=== PATIENT | male | born 1980 | race Caucasian/White ===

== ENCOUNTER 2017-11-29 22:17 | Emergency (ER) | payer MEDICARE, MEDICAID ==
[2017-11-29 23:19] LABS: BASO % 0.5 % (0.0-1.0); EOS # 0.1 10^3/uL (0.0-0.50); EOS % 0.8 % (0.0-3.0); HEMATOCRIT 42.3 % (42.0-52.0); HEMOGLOBIN 14.3 g/dl (13.5-17.5); IMMATURE GRANULOCYTE % 0.3 % (0-3.0); LYMPH # 2.5 10^3/uL (1.5-4.5); LYMPH % 31.8 % (24.0-44.0); MEAN CORPUSCULAR HEMOGLOBIN 30.9 pg (27.0-33.0); MEAN CORPUSCULAR HGB CONC 33.8 g/dl (32.0-36.5); MEAN CORPUSCULAR VOLUME 91.4 fl (80.0-96.0); MONO # 0.5 10^3/uL (0.0-0.8); MONO % 6.9 % (0.0-5.0); NEUTROPHILS # 4.7 10^3/uL (1.8-7.7); NEUTROPHILS % 59.7 % (36.0-66.0); PLATELET COUNT, AUTOMATED 202 10^3/uL (150-450); RED BLOOD COUNT 4.63 10^6/uL (4.30-6.10); RED CELL DISTRIBUTION WIDTH 12.6 % (11.5-14.5); WHITE BLOOD COUNT 7.8 10^3/uL (4.0-10.0)
[2017-11-29 23:23] LABS: INR 0.95; PROTHROMBIN TIME 12.8 SECONDS (12.1-14.4)
[2017-11-29 23:24] LABS: PARTIAL THROMBOPLASTIN TIME 25.7 SECONDS (25.4-37.6)
[2017-11-29 23:32] LABS: ANION GAP 9 MEQ/L (8-16); BLOOD UREA NITROGEN 13 MG/DL (7-18); CALCIUM LEVEL 8.3 MG/DL (8.5-10.1); CARBON DIOXIDE LEVEL 23 MEQ/L (21-32); CHLORIDE LEVEL 109 MEQ/L (98-107); CREATININE FOR GFR 0.96 MG/DL (0.70-1.30); ETHYL ALCOHOL (ETHANOL) 0.109 % (0.000-0.010); GLOMERULAR FILTRATION RATE > 60.0 (>60); GLUCOSE, FASTING 94 MG/DL (70-100); POTASSIUM SERUM 3.5 MEQ/L (3.5-5.1); SODIUM LEVEL 141 MEQ/L (136-145)
[2017-11-29] MEDS: NS 1,000 ML IV (23:40)
[2017-11-29] MEDS: MORPHINE 4 MG/ML 1ML VIAL/SYRINGE (J2270) IV (23:40)
[2017-11-30] MEDS: HYDROMORPHONE HCL 0.5 MG/ 0.5 ML SYRINGE (J1170 PER 1) IV ×2 (00:46→01:38)
== END 2017-11-30 02:10 | disposition short-term general hospital (02) ==
LOC: M ED 11-30 02:10
DX: S02.40DA Maxillary fracture, left side, initial encounter for closed fracture (principal); S02.2XXA Fracture of nasal bones, initial encounter for closed fracture; S02.609A Fracture of mandible, unspecified, initial encounter for closed fracture; Y04.0XXA Assault by unarmed brawl or fight, initial encounter; Y92.89 Other specified places as the place of occurrence of the external cause; F10.20 Alcohol dependence, uncomplicated; F31.9 Bipolar disorder, unspecified; F17.210 Nicotine dependence, cigarettes, uncomplicated
CPT/HCPCS: J2270

== ENCOUNTER → 2018-04-05 | Outpatient (REF) | payer MEDICARE, MEDICAID ==
[~2018-04-05] MED LIST: LAMO100T PO; NICO4GUM8 PO; OLAN20TA14 PO; OMEP40CA2 PO; OXCA300T14 PO; OXCA600T8 PO; SUBO8MIS PO; SUCR1TAB56 PO
[2018-04-05 16:26] LABS: INFLUENZA A AMPLIFICATION NEGATIVE (NEGATIVE); INFLUENZA B AMPLIFICATION NEGATIVE (NEGATIVE)
== END ==
LOC: M LAB REF 15:22
PROVIDERS: ATTEND Physician Assistant
DX: J11.1 Influenza due to unidentified influenza virus with other respiratory manifestations (principal)

== ENCOUNTER → 2020-12-15 | Outpatient (CLI) | payer MEDICARE, MEDICAID ==
[~2020-12-15] MED LIST changes: -LAMO100T PO; +LAMO100T3 PO; -OMEP40CA2 PO; +OMEP40CA4 PO
== END ==
LOC: M OUTALCOH 07:53
PROVIDERS: ATTEND Psychiatry & Neurology Psychiatry
DX: Z03.89 Encounter for observation for other suspected diseases and conditions ruled out (principal)

== ENCOUNTER 2020-12-23 14:53 | Outpatient (RCR) | payer MEDICARE, MEDICAID | END 2021-01-19 | LOC: M OUTALCOH 14:53 | PROVIDERS: ATTEND Psychiatry & Neurology Psychiatry | DX: Z03.89 Encounter for observation for other suspected diseases and conditions ruled out (principal); Z72.0 Tobacco use ==

== ENCOUNTER → 2020-12-31 | Outpatient (CLI) | payer MEDICARE, MEDICAID ==
--- NOTE | 2020-12-31 16:42 | REP ---
INDICATION: SOB. COMPARISON: AP CXR 08/10/2015, CXR 11/09/2013, CTA 08/27/2013. TECHNIQUE: Two views FINDINGS: There is slight elevation of the right diaphragm compared to the previous study. Some linear atelectatic or fibrotic changes seen in the right base. No pleural effusion, dense consolidation, lateral pleural thickening or parenchymal mass. There is no apical pleural scarring or pneumothorax. Subtle density projects over the posterior left 8th rib and 5th intercostal space. Whether this is parenchymal or bony is uncertain. There are a few cuffed bronchi in the perihilar regions which could reflect some reactive airway disease or bronchitis. Heart is not grossly enlarged. The aorta and airway are intact. Swetha generally symmetric. Thoracic spine shows no compression deformity or focal lesion. Clavicles and visualized shoulders intact. I do not see any definite displaced fractures of the ribs. Bilateral and anterior chest wall jewelry again seen. IMPRESSION: 1. In the interval from 2015 there is elevation of the right diaphragm with some linear fibrotic or atelectatic change in the right base. No definite dense consolidation, pleural effusion, pleural thickening, pneumothorax or parenchymal mass. However, there are a few cuffed bronchi in the perihilar regions reflecting possible reactive airway disease or bronchitis. 2. Subtle density overlies the posterior left 8th rib in the 5th intercostal space and could be parenchymal or bony. No similar findings and previous exams. 3. No other significant or acute findings. <Electronically signed by Gumaro Lowry > 12/31/20 [id number]
== END ==
LOC: M RAD 16:10
PROVIDERS: ATTEND Physician Assistant
DX: R50.9 Fever, unspecified (principal); F17.210 Nicotine dependence, cigarettes, uncomplicated

== ENCOUNTER → 2021-01-07 | Outpatient (CLI) | payer MEDICARE, MEDICAID ==
[2021-01-07 10:56] LABS: BASO # 0.1 10^3/uL (0.0-0.2); BASO % 0.7 % (0.0-1.0); EOS # 0.2 10^3/uL (0.0-0.5); EOS % 2.7 % (0.0-3.0); HEMATOCRIT 43.3 % (42.0-52.0); HEMOGLOBIN 14.3 g/dl (13.5-17.5); LYMPH # 2.5 10^3/uL (1.5-5.0); MEAN CORPUSCULAR HEMOGLOBIN 30.6 pg (27.0-33.0); MEAN CORPUSCULAR VOLUME 92.5 fl (80.0-96.0); MONO # 0.5 10^3/uL (0.0-0.8); MONO % 7.3 % (2.0-8.0); NEUTROPHILS # 3.9 10^3/uL (1.5-8.5); NEUTROPHILS % 53.9 % (36.0-66.0); PLATELET COUNT, AUTOMATED 215 10^3/uL (150-450); RED BLOOD COUNT 4.68 10^6/uL (4.30-6.10); WHITE BLOOD COUNT 7.1 10^3/uL (4.0-10.0)
[2021-01-07 11:41] LABS: ALBUMIN 3.3 GM/DL (3.2-5.2); ALT/SGPT 41 U/L (12-78); BILIRUBIN,TOTAL 0.2 MG/DL (0.2-1.0); BLOOD UREA NITROGEN 7 MG/DL (7-18); CALCIUM LEVEL 8.5 MG/DL (8.5-10.1); CARBON DIOXIDE LEVEL 25 MEQ/L (21-32); CHLORIDE LEVEL 109 MEQ/L (98-107); CHOLESTEROL LEVEL 164 MG/DL (<200); CHOLESTEROL RISK RATIO 4.205 (<5); CREATININE FOR GFR 0.96 MG/DL (0.70-1.30); FERRITIN 102 NG/ML (26-388); GLOMERULAR FILTRATION RATE > 60.0 (>60); GLUCOSE, FASTING 84 MG/DL (70-100); HDL CHOLESTEROL 39 MG/DL (>40); IRON (FE) 71 UG/DL (65-175); LDL CHOLESTEROL 88 MG/DL (<100); MAGNESIUM LEVEL 2.3 MG/DL (1.8-2.4); NON-HDL-C 125 MG/DL; PERCENT SATURATION 37.4 % (19.7-50.0); PHOSPHORUS LEVEL 3.5 MG/DL (2.5-4.9); POTASSIUM SERUM 3.9 MEQ/L (3.5-5.1); PROLACTIN 5.9 NG/ML (2.1-17.7); SODIUM LEVEL 141 MEQ/L (136-145); THYROXINE (T4) 6.3 UG/DL (4.5-12.0); TOTAL 25(OH) VITAMIN D 17.6 NG/ML (30.0-100.0); TOTAL IRON BINDING CAPACITY 190 UG/DL (250-450); TOTAL PROTEIN 6.1 GM/DL (6.4-8.2); TOTAL T3 105.2 NG/DL (60.0-181.0); TRIGLYCERIDES LEVEL 185 MG/DL (<150); VITAMIN B12 LEVEL 367 PG/ML (247-911)
== END ==
LOC: M LAB 10:00
PROVIDERS: ATTEND Acupuncturist
DX: Z51.81 Encounter for therapeutic drug level monitoring (principal); Z79.899 Other long term (current) drug therapy; E55.9 Vitamin D deficiency, unspecified; D50.9 Iron deficiency anemia, unspecified; E53.9 Vitamin B deficiency, unspecified; R79.89 Other specified abnormal findings of blood chemistry

== ENCOUNTER → 2022-09-20 | Outpatient (CLI) | payer MEDICARE, MEDICAID | LOC: M RAD 10:21 | PROVIDERS: ATTEND Physician Assistant | DX: J45.20 Mild intermittent asthma, uncomplicated (principal); R91.8 Other nonspecific abnormal finding of lung field ==

== ENCOUNTER → 2022-10-25 | Outpatient (CLI) | payer MEDICARE, MEDICAID | LOC: M RAD 09:06 | PROVIDERS: ATTEND Physician Assistant | DX: J45.21 Mild intermittent asthma with (acute) exacerbation (principal) ==

== ENCOUNTER → 2022-11-11 | Outpatient (CLI) | payer MEDICARE, MEDICAID ==
[~2022-11-11] MED LIST changes: +ISOVUE-370 76% 100ML VIAL As Ordered ONE
== END ==
LOC: M RAD 10:18
PROVIDERS: ATTEND Physician Assistant
DX: R91.8 Other nonspecific abnormal finding of lung field (principal)
CPT/HCPCS: 71260; Q9967

== ENCOUNTER → 2023-10-12 | Outpatient (CLI) | payer MEDICARE, MEDICAID ==
[~2023-10-12] MED LIST changes: -ISOVUE-370 76% 100ML VIAL As Ordered ONE; -OLAN20TA14 PO; +OLAN20TA53 PO
== END ==
LOC: M RAD 17:29
PROVIDERS: ATTEND Physician Assistant
DX: R07.82 Intercostal pain (principal)

== ENCOUNTER → 2023-11-13 | Outpatient (CLI) | payer MEDICARE, MEDICAID | LOC: M PLAIMG 14:34 | PROVIDERS: ATTEND Physician Assistant Surgical | DX: M25.522 Pain in left elbow (principal); M77.12 Lateral epicondylitis, left elbow ==

== ENCOUNTER → 2023-11-29 | Outpatient (CLI) | payer MEDICARE, MEDICAID | LOC: M LAB 12:51 | PROVIDERS: ATTEND Orthopaedic Surgery | DX: Z01.818 Encounter for other preprocedural examination (principal); R94.31 Abnormal electrocardiogram [ECG] [EKG] ==

== ENCOUNTER → 2024-06-24 | Outpatient (CLI) | payer MEDICARE, MEDICAID ==
[2024-06-24 15:21] LABS: BASO % 0.5 % (0.0-1.0); EOS # 0.2 10^3/uL (0.0-0.5); EOS % 2.7 % (0.0-3.0); HEMATOCRIT 44.9 % (42.0-52.0); HEMOGLOBIN 14.8 g/dl (13.5-17.5); LYMPH # 1.7 10^3/uL (1.5-5.0); LYMPH % 25.9 % (24.0-44.0); MEAN CORPUSCULAR VOLUME 90.9 fl (80.0-96.0); MONO # 0.5 10^3/uL (0.0-0.8); MONO % 7.1 % (2.0-8.0); NEUTROPHILS # 4.1 10^3/uL (1.5-8.5); NEUTROPHILS % 63.5 % (36.0-66.0); PLATELET COUNT, AUTOMATED 197 10^3/uL (150-450); RED BLOOD COUNT 4.94 10^6/uL (4.30-6.10); WHITE BLOOD COUNT 6.4 10^3/uL (4.0-10.0)
[2024-06-24 15:46] LABS: ETHYL ALCOHOL (ETHANOL) 0.003 % (0.000-0.010)
[2024-06-24 15:48] LABS: ALBUMIN 3.8 G/DL (3.2-5.2); ALKALINE PHOSPHATASE 52 U/L (40-129); ALT/SGPT 73 U/L (7.0-40); AST/SGOT 31 U/L (<34); BILIRUBIN,TOTAL 0.3 MG/DL (0.3-1.2); BLOOD UREA NITROGEN 16 MG/DL (9-23); CARBON DIOXIDE LEVEL 29 MMOL/L (20-31); CHLORIDE LEVEL 110 MMOL/L (98-107); CHOLESTEROL LEVEL 153 MG/DL (<200); CHOLESTEROL RISK RATIO 4.22 (<5); CREATININE FOR GFR 1.01 MG/DL (0.70-1.30); GLOMERULAR FILTRATION RATE > 90.0 (>60); GLUCOSE, FASTING 90 MG/DL (60-100); HDL CHOLESTEROL 36.2 MG/DL (>40); MAGNESIUM LEVEL 2.1 MG/DL (1.8-2.4); NON-HDL-C 116.8 MG/DL; POTASSIUM SERUM 4.1 MMOL/L (3.5-5.1); SODIUM LEVEL 144 MMOL/L (136-145); TOTAL PROTEIN 6.6 G/DL (5.7-8.2); TRIGLYCERIDES LEVEL 119 MG/DL (<150)
[2024-06-24 15:49] LABS: THYROID STIMULATING HORMONE 1.489 uIU/ML (0.55-4.78); THYROXINE (T4) 6.5 UG/DL (4.5-10.9)
[2024-06-24 15:50] LABS: PROLACTIN 7.14 NG/ML (2.1-17.7); TOTAL 25(OH) VITAMIN D 22.2 NG/ML (20.0-100.0)
[2024-06-24 17:12] LABS: HEMOGLOBIN A1c 5.5 % (4.0-6.0)
[2024-06-24 17:16] LABS: TOTAL T3 109.1 NG/DL (60.0-181.0)
== END ==
LOC: M LAB 14:23
PROVIDERS: ATTEND Acupuncturist
DX: Z51.81 Encounter for therapeutic drug level monitoring (principal); Z79.899 Other long term (current) drug therapy; E55.9 Vitamin D deficiency, unspecified; R79.89 Other specified abnormal findings of blood chemistry

== ENCOUNTER → 2024-08-20 | Outpatient (REF) | payer MEDICARE, MEDICAID ==
[~2024-08-20] MED LIST changes: +ALBU8.5H INH; +CHLO25TA88 PO; +MELO7.5T35 PO; +METF10004 PO; +OLAN20TA74 PO; +OXYB5TAB14 PO; +OXYC1TAB23 PO; +TAMS1CAP17 PO; +TREL1AER INH; +TRIL1TAB PO; +TRIL600T PO; +VRAY4.5C PO
[2024-08-20 18:14] LABS: APPEARANCE, URINE HAZY (CLEAR); BACTERIA, URINE AUTO NEGATIVE (NEGATIVE); BILIRUBIN, URINE AUTO NEGATIVE (NEGATIVE); BLOOD, URINE BLOOD 3+ (NEGATIVE); GLUCOSE, URINE (UA) AUTO NEGATIVE (NEGATIVE); KETONE, URINE AUTO NEGATIVE (NEGATIVE); LEUKOCYTE ESTERASE, URINE AUTO 3+ (NEGATIVE); MUCUS, URINE SMALL (NEGATIVE); NITRITE, URINE AUTO NEGATIVE (NEGATIVE); PROTEIN, URINE AUTO 2+ mg/dL (NEGATIVE); RBC, URINE AUTO TNTC /HPF (0-3); SPECIFIC GRAVITY URINE AUTO 1.016 (1.002-1.035); SQUAMOUS EPITHELIAL CELL UR AU 1 /HPF (0-6); UROBILINOGEN, URINE AUTO 0.2 mg/dL (0.0-2.0); WBC, URINE AUTO 19 /HPF (0-3)
== END ==
LOC: M SMT 17:04
PROVIDERS: ATTEND Urology
DX: N39.0 Urinary tract infection, site not specified (principal)

== ENCOUNTER 2024-09-27 12:10 | Emergency (ER) | payer MEDICARE, MEDICAID ==
[~2024-09-27] VITALS: Ht 188 cm; Wt 123.7 kg
[2024-09-27] MEDS: AUGMENTIN 875 MG TAB PO ONE (13:21)
[2024-09-27] MEDS: IBUPROFEN 800 MG TAB PO ONE (13:22)
[2024-09-27 13:27] VITALS: BP 138/82; TEMP 97.1; O2SAT 97
[2024-09-27] MEDS ORDERED: AMOX875T2 PO (13:27)
[2024-09-27] MEDS ORDERED: IBUP-1022 PO (13:27)
== END 2024-09-27 13:33 | disposition home or self-care (01) ==
LOC: M ED 12:10
DX: K04.7 Periapical abscess without sinus (principal); Z79.899 Other long term (current) drug therapy